=== PATIENT | male | born 1985 | race Caucasian/White ===

== ENCOUNTER 2023-02-08 15:16 | Emergency (ER) | payer SELFPAY ==
[2023-02-08 17:16] VITALS: BP 125/85; TEMP 98.6; O2SAT 100
--- NOTE | 2023-02-20 17:11 | EDPHYS ---
Physician Documentation [facility] Name: Frank Gunter Age: 37 yrs Sex: Male : 1985 Arrival Date: 02/08/2023 Time: 15:19 Bed 6 Private MD: ED Physician Jorge Alberto Morales HPI: 02/08 15:23 This 37 yrs old Male presents to ER via EMS with complaints of Seizure. jmm 15:23 Is a 37-year-old male with history of ADHD and epilepsy the presents emerged department jm with complaints of a seizure which occurred just prior to arrival. Patient states he does have a mild headache. Denies any neck pain, chest pain, shortness of breath. Patient states he is not on antiepileptics. He does use medical marijuana to help with his symptoms.. Historical: - Allergies: 15:22 BENZODIAZEPINES; ld1 - PMHx: 15:22 ADHD; Seizure; ld1 - PSHx: 15:22 None; ld1 - Immunization history:: Adult Immunizations up to date, Client reports receiving the 2nd dose of the Covid vaccine. - Social history:: Smoking status: Reported history of juuling and/or vaping. Patient uses alcohol, occasionally. street drugs, marijuana. ROS: 15:23 Constitutional: Negative for fever, chills, and weight loss, Cardiovascular: Negative jm for chest pain, palpitations, and edema, Respiratory: Negative for shortness of breath, cough, wheezing, and pleuritic chest pain. 15:23 Neuro: Positive for headache. 15:23 All other systems are negative. Exam: 15:23 Constitutional: This is a well developed, well nourished patient who is awake, alert, jmm and in no acute distress. Head/Face: atraumatic. Eyes: EOMI, no conjunctival erythema appreciated ENT: Moist Mucus Membranes Neck: Trachea midline, Supple Chest/axilla: Normal chest wall appearance and motion. Cardiovascular: Regular rate and rhythm. No edema appreciated Respiratory: Normal respirations, no respiratory distress appreciated Abdomen/GI: Non distended Back: Normal ROM Skin: General appearance color normal MS/ Extremity: Moves all extremities, no obvious deformities appreciated, no edema noted to the lower extremities Neuro: Awake and alert Psych: Behavior is normal, Mood is normal, Patient is cooperative and pleasant Vital Signs: 15:20 BP 125 / 85; Pulse 76; Resp 18; Temp 98.6(O); Pulse Ox 100% on R/A; Weight 83.91 kg; ld1 Height 6 ft. 0 in. ; Pain 3/10; 15:20 Body Mass Index 25.09 (83.91 kg, 182.88 cm) ld1 15:20 Pain Scale: Adult ld1 Watson Coma Score: 15:22 Eye Response: spontaneous(4). Motor Response: obeys commands(6). Verbal Response: ld1 oriented(5). Total: 15. MDM: 15:23 Patient medically screened. jmm 15:27 Differential diagnosis: seizure. Data reviewed: vital signs. [facility] 18:09 Test considered but Not performed: Labs: Patient refused. CT: Patient refused. jmm Counseling: I had a detailed discussion with the patient and/or guardian regarding: the historical points, exam findings, and any diagnostic results supporting the discharge/admit diagnosis, the need for outpatient follow up, to return to the emergency department if symptoms worsen or persist or if there are any questions or concerns that arise at home. Refusal of service: The patient/guardian displays adequate decision making capability and despite a detailed discussion of alternatives, benefits, risks, and consequences refuses: CT Scan, all lab tests. Administered Medications: No medications were administered Disposition: 16:51 Co-signature as Attending Physician, Jorge Alberto Morales MD I reviewed the patient's care rt provided by the Advanced Practice Provider and agree with the diagnosis and treatment plan. Disposition Summary: 02/08/23 15:27 Discharge Ordered Location: Home jmm Condition: Stable jmm Diagnosis - Other seizures jmm Followup: jmm - With: Private Physician - When: 2 - 3 days - Reason: Recheck today's complaints, Continuance of care, Re-evaluation by your physician Discharge Instructions: - Discharge Summary Sheet jmm - Seizure, Adult jmm Forms: - Medication Reconciliation Form jmm - Thank You Letter jmm - Antibiotic Education jmm - Prescription Opioid Use jmm Signatures: Valeriano Dennis PA PA jmm Dibbern, Lauren, RN RN ld1 Jorge Alberto Morales MD MD rt Corrections: (The following items were deleted from the chart) 15:23 15:22 Allergies: No Known Allergies; ld1 ld1
--- NOTE | 2023-02-20 17:11 | ER ---
Nurse's Notes [facility] Name: Frank Gunter Age: 37 yrs Sex: Male : 1985 Arrival Date: 02/08/2023 Time: 15:19 Bed 6 Private MD: Diagnosis: Other seizures Presentation: 02/08 15:20 Chief complaint: EMS [place]. EMS reports pt being post ld1 ictal upon arrival to [place]. C/O headache 02/06, fell and hit head on concrete due to seizure. Coronavirus screen: At this time, the client does not indicate any symptoms associated with coronavirus-19. Ebola Screen: No symptoms or risks identified at this time. Initial Sepsis Screen: Does the patient meet any 2 criteria? No. Patient's initial sepsis screen is negative. Does the patient have a suspected source of infection? No. Patient's initial sepsis screen is negative. Risk Assessment: Do you want to hurt yourself or someone else? Patient reports no desire to harm self or others. Onset of symptoms was February 08, 2023. 15:20 Method Of Arrival: EMS: [facility] ld1 15:20 Acuity: JAMI 3 ld1 Triage Assessment: 15:22 General: Appears in no apparent distress. comfortable, Behavior is calm, cooperative, ld1 appropriate for age. Pain: Complains of pain in face Pain does not radiate. Pain currently is 3 out of 10 on a pain scale. Quality of pain is described as throbbing. EENT: No signs and/or symptoms were reported regarding the EENT system. Neuro: Level of Consciousness is awake, alert, obeys commands, Oriented to person, place, time, situation, Appropriate for age. Neuro: Seizure activity reported prior to arrival. Cardiovascular: Capillary refill < 3 seconds Patient's skin is warm and dry. Respiratory: Airway is patent Respiratory effort is even, unlabored. GI: Abdomen is flat, non-distended. : No signs and/or symptoms were reported regarding the genitourinary system. Derm: No signs and/or symptoms reported regarding the dermatologic system. Musculoskeletal: No signs and/or symptoms reported regarding the musculoskeletal system. Historical: - Allergies: 15:22 BENZODIAZEPINES; ld1 - PMHx: 15:22 ADHD; Seizure; ld1 - PSHx: 15:22 None; ld1 - Immunization history:: Adult Immunizations up to date, Client reports receiving the 2nd dose of the Covid vaccine. - Social history:: Smoking status: Reported history of juuling and/or vaping. Patient uses alcohol, occasionally. street drugs, marijuana. Screenin:23 [facility] ED Fall Risk Assessment (Adult) History of falling in the last 3 months, ld1 including since admission Yes- single mechanical fall (1 pt). Abuse screen: Denies threats or abuse. Denies injuries from another. Nutritional screening: No deficits noted. Tuberculosis screening: No symptoms or risk factors identified. Assessment: 15: Reassessment: See triage assessment. ld1 Vital Signs: 15:20 BP 125 / 85; Pulse 76; Resp 18; Temp 98.6(O); Pulse Ox 100% on R/A; Weight 83.91 kg; ld1 Height 6 ft. 0 in. ; Pain 3/10; 15:20 Body Mass Index 25.09 (83.91 kg, 182.88 cm) ld1 15:20 Pain Scale: Adult ld1 Watson Coma Score: 15:22 Eye Response: spontaneous(4). Motor Response: obeys commands(6). Verbal Response: ld1 oriented(5). Total: 15. ED Course: 15:19 Patient arrived in ED. ld1 15: Triage completed. ld1 15:22 Arm band placed on right wrist. ld1 15:23 Valeriano Dennis PA is PHCP. [facility] 15:23 Jorge Alberto Morales MD is Attending Physician. jm 15:23 Patient has correct armband on for positive identification. Placed in gown. Bed in low ld1 position. Call light in reach. Side rails up X2. traffic monitor specialist on. Pulse ox on. NIBP on. Door closed. Noise minimized. Warm blanket given. 15:23 No provider procedures requiring assistance completed. ld1 15:34 Seizure precautions initiated. ld1 15:34 Patient did not have IV access during this emergency room visit. ld1 Administered Medications: No medications were administered Medication: 15: VIS not applicable for this client. ld1 Outcome: 15:27 Discharge ordered by . ladan 15:33 Patient left the ED. kj1 15:33 Discharged to home ambulatory. ld1 15:33 Condition: stable 15:33 Discharge instructions given to patient, Instructed on discharge instructions, follow up and referral plans. Demonstrated understanding of instructions, follow-up care. Signatures: Valeriano Dennis PA PA jmm Jackson, Kandis kj1 Mesha Reed RN RN ld1 Corrections: (The following items were deleted from the chart) 15:23 15:22 Allergies: No Known Allergies; ld1 ld1
== END 2023-02-08 15:33 | disposition home or self-care (01) ==
LOC: ER 15:16
DX: R56.9 Unspecified convulsions (principal)
CPT/HCPCS: 99284